=== PATIENT | female | born 1970 | race Caucasian/White ===

== ENCOUNTER 2016-12-18 15:10 | Emergency (ER) | payer OTHER ==
[~2016-12-18] VITALS: Ht 165.1 cm; Wt 122.0 kg
[~2016-12-18 15:10] MED LIST: CYAN100018 PO; FER325 PO; PREN-39 PO
[2016-12-18 15:12] VITALS: Ht 165.1 cm; Wt 122.0 kg
--- NOTE | 2016-12-18 17:27 | ERD ---
ER Documentation Chief Complaint Date/Time DATE: 12/18/16 TIME: 17:25 Chief Complaint vag bleed x 1 month HPI Patient is a 46-year-old female who presents to the ED with vaginal bleeding for over one month. She states that she wears multiple pads a day. She states that she had a D&C 2 years ago however she states that she does have irregular periods and has been bleeding. She complains of mild pelvic pain. She complains of dizziness and fatigue for over 1 month. Denies fever or chills. Denies headache. Also complains of dizziness. Denies abdominal pain, nausea, vomiting, diarrhea or constipation. She states her doctor is Dr. Andujar and she has an appointment on 01/01/17 but would like to have a procedure done earlier. ROS All systems reviewed and are negative except as per history of present illness. Medications Home Meds Active Scripts Ferrous Sulfate (Iron) 325 Mg Capsule.er, 325 MG PO TID for 90 Days, CAP Prov:GALILEA CANALES PA-C 12/18/16 Ferrous Sulfate* (Ferrous Sulfate*) 325 Mg Tabec, 325 MG PO DAILY for 30 Days, TAB Prov:ELENA HARMON NP 09/25/14 Reported Medications Vits W-Ca,Fe,Fa(<1MG) ( Vitamins) 1 Tab Tablet, 1 TAB PO DAILY 04/23/14 Cyanocobalamin (B12 Health Booster) 1,000 Mcg/15 Ml Oral.susp, 1000 MCG PO DAILY 04/23/14 Allergies Allergies: Coded Allergies: No Known Allergy (Unverified , 09/22/14) PMhx/Soc History of Surgery: Yes (C SECTION. CHOLECYSTECTOMY, D AND C) Anesthesia Reaction: No Hx Neurological Disorder: No Hx Respiratory Disorders: No Hx Cardiac Disorders: No Hx Psychiatric Problems: No Hx Miscellaneous Medical Probl: No Hx Alcohol Use: No Hx Substance Use: No Hx Tobacco Use: No Smoking Status: Never smoker Physical Exam Vitals Vital Signs Date Time Temp Pulse Resp B/P Pulse Ox O2 Delivery O2 Flow Rate FiO2 12/18/16 15:12 98.1 88 18 140/82 100 Physical Exam GENERAL: Well-developed, well-nourished obese female. Appears in no acute distress. HEART: Regular rate and rhythm. No murmurs, rubs or gallops. ABDOMEN: No scars, ecchymosis or rashes noted. Soft, nontender, and nondistended. Positive bowel sounds in all four quadrants. No rebound tenderness , no guarding. (-) McBurneys point tenderness. No CVA tenderness. BACK: No midline tenderness. Extremities: Equal pulses bilaterally. No peripheral clubbing, cyanosis or edema. No unilateral leg swelling. NEUROLOGIC: Alert and oriented. Moving all four extremities. 5/5 strength in all extremities. Normal speech. Steady gait. SKIN: Normal color. Warm and dry. No rashes or lesions. Capillary refill < 2 seconds Result Diagram: 12/18/16 1800 Results 24 hrs Laboratory Tests Test 12/18/16 18:00 12/18/16 18:21 White Blood Count 11.210^3/ul Red Blood Count 3.4510^6/ul Hemoglobin 8.7g/dl Hematocrit 28.5% Mean Corpuscular Volume 82.6fl Mean Corpuscular Hemoglobin 25.2pg Mean Corpuscular Hemoglobin Concent 30.5g/dl Red Cell Distribution Width 15.7% Platelet Count 54492^3/UL Mean Platelet Volume 9.7fl Neutrophils % 69.2% Lymphocytes % 24.6% Monocytes % 3.9% Eosinophils % 1.4% Basophils % 0.4% Nucleated Red Blood Cells % 0.0/100WBC Neutrophils # 7.810^3/ul Lymphocytes # 2.810^3/ul Monocytes # 0.410^3/ul Eosinophils # 0.210^3/ul Basophils # 0.010^3/ul Nucleated Red Blood Cells # 0.010^3/ul Bedside Urine pH (LAB) 5.5 Bedside Urine Protein (LAB) Negative Bedside Urine Glucose (UA) Negative Bedside Urine Ketones (LAB) Negative Bedside Urine Blood 3+ Bedside Urine Nitrite (LAB) Negative Bedside Urine Leukocyte Esterase (L Negative Procedures/MDM ER COURSE: I kept the patient and/or family informed of laboratory and diagnostic imaging results throughout the emergency room course. EKG, MONITORS, & DIAGNOSTIC IMAGING: [place] [id number] Radiology Main Line: [phone] DIAGNOSTIC IMAGING REPORT Patient: JOSLYN CRUZ : 1970 Age: 46 Sex: F MR #: [id number] DOS: 12/18/16 1643 Ordering MD: GALILEA CANALES PA-C Location: [facility] Room/Bed: PROCEDURE: US Pelvis CLINICAL INDICATION: VAGINAL BLEEDING X 1 MONTH TECHNIQUE: Multiple sonographic images of the pelvis were obtained utilizing a transabdominal technique. The images were reviewed on a PACS workstation. COMPARISON: None. FINDINGS: The uterus measures 12.2 x 5.1 x 7.4 cm. The endometrial echo complex measures 8 mm in thickness. No discrete lesion is seen. The right ovary measures 2.7 x 2.0 x 2.3 cm. The left ovary measures 2.8 x 2.4 x 2.8 cm. There is normal vascular flow in both ovaries. No significant ovarian lesions are seen. No significant pelvic free fluid is identified. IMPRESSION: Unremarkable transabdominal pelvic ultrasound, as above. RPTAT: EE Physician Nallely Date Time Electronically viewed and signed by Physician Nallely on 12/18/2016 17:51 RA/ CC: GALILEA CANALES PA-C LAB INTERPRETATION: CBC shows hemoglobin 8.7 with a white count of 11.2. Urine dip shows 3+ blood with no nitrites or leukocytes. MEDICAL DECISION MAKING: This is a 46-year-old female who presents with vaginal bleeding greater than 1 month. Vital signs were reviewed. Patient is afebrile. Patient is not hypoxic. Patient is not toxic or ill-appearing. Patient is not tachycardic. Patient has vaginal bleeding of unknown etiology. Her ultrasound is read by radiologist is unremarkable transabdominal pelvic ultrasound. I did speak with Dr. Andujar who stated that patient is stable for outpatient therapy and can be seen at his office tomorrow 12/19/16 after 9 AM. Low suspicion for ovarian torsion, PID, tuboovarian abscess, ectopic , bowel obstruction, pyelonephritis, UTI, appendicitis, cervicitis, septic , molar , HELLP syndrome, preeclampsia, eclampsia, placenta previa, placenta abruptia. Patient is hemodynamically stable. Patient does not need to be admitted at this time for blood transfusion. DISCHARGE: At this time, patient is stable for discharge and outpatient management with no new complaints during the ER course. Patient was sent home with iron and address of Dr. Andujar as well as phone number and to follow-up tomorrow.. Patient will be discharged home with instructions to recheck for new or worsening symptoms such as fever, nausea, weakness, LOC and to follow up with primary care in the next 1-2 days. Patient was advised to return to the ER for any new or worsening symptoms. Plan was discussed and patient and/or family understands and agrees. Home instructions were given. Departure Diagnosis: Primary Impression: Vaginal bleeding Condition: Stable GALILEA CANALES PA-C Dec 18, 2016 17:27
--- NOTE | 2016-12-18 17:51 | RADRPT ---
PROCEDURE: US Pelvis CLINICAL INDICATION: VAGINAL BLEEDING X 1 MONTH TECHNIQUE: Multiple sonographic images of the pelvis were obtained utilizing a transabdominal tech nique. The images were reviewed on a PACS workstation. COMPARISON: None. FINDINGS: The uterus measures 12.2 x 5.1 x 7.4 cm. The endometrial echo complex measures 8 mm in thickness. No discrete lesion is seen. The right ovary measures 2.7 x 2.0 x 2.3 cm. The left ovary measures 2.8 x 2.4 x 2.8 cm. There is no rmal vascular flow in both ovaries. No significant ovarian lesions are seen. No significant pelvic free fluid is identified. IMPRESSION: Unremarkable transabdominal pelvic ultrasound, as above. RPTAT: EE Physician Nallely Date Time Electronically viewed and signed by Physician Nallely on 12/18/2016 17:51 /
[2016-12-18 18:20] LABS: ADD SCAN DIFF NO
[2016-12-18 18:21] LABS: URINE BLOOD (Dip) POC 3+ (NEGATIVE)
[2016-12-18 18:23] LABS: BASOPHILS % 0.4 % (0.0-2.0); EOSINOPHILS # 0.2 10^3/ul (0.0-0.5); EOSINOPHILS % 1.4 % (0.0-7.0); HEMATOCRIT 28.5 % (37.0-47.0); HEMOGLOBIN 8.7 g/dl (12.0-16.0); LYMPHOCYTES # 2.8 10^3/ul (0.8-2.9); LYMPHOCYTES % 24.6 % (15.0-51.0); MEAN CORPUSCULAR HEMOGLOBIN 25.2 pg (29.0-33.0); MEAN CORPUSCULAR HGB CONC 30.5 g/dl (32.0-37.0); MEAN CORPUSCULAR VOLUME 82.6 fl (82.0-101.0); MEAN PLATELET VOLUME 9.7 fl (7.4-10.4); MONOCYTE # 0.4 10^3/ul (0.3-0.9); MONOCYTES % 3.9 % (0.0-11.0); NEUTROPHIL # 7.8 10^3/ul (1.6-7.5); NEUTROPHILS % 69.2 % (39.0-77.0); PLATELET COUNT 374 10^3/UL (140-415); RED BLOOD COUNT 3.45 10^6/ul (4.20-5.40); RED CELL DISTRIBUTION WIDTH 15.7 % (11.5-14.5); WHITE BLOOD COUNT 11.2 10^3/ul (4.8-10.8)
[2016-12-18] MEDS ORDERED: FERR325C PO (18:45)
== END 2016-12-18 19:15 | disposition home or self-care (01) ==
LOC: FTE 15:10
DX: N93.8 Other specified abnormal uterine and vaginal bleeding (principal); R10.2 Pelvic and perineal pain
CPT/HCPCS: 36415; 76856; 81003; 85025

== ENCOUNTER 2017-01-02 07:10 | Day surgery (SDC) | payer OTHER ==
[2017-01-01 11:33] VITALS: BMI 48.4
[~2017-01-02] VITALS: Ht 165.1 cm; Wt 135.0 kg
[2017-01-02] VITALS (15 sets, daily range): BP systolic 125–151; BP diastolic 61–80; PULSE 82–92; RESP 16–18; Ht 165.1 cm; Wt 135.0 kg
[~2017-01-02 07:10] MED LIST changes: +FERR325C PO
[2017-01-02] MEDS ORDERED: OMEP40CA6 PO (07:56)
[2017-01-02] MEDS ORDERED: ASPI-664 PO (07:57)
[2017-01-02] MEDS ORDERED: CHLO25TA13 PO (07:57)
[2017-01-02] MEDS ORDERED: MULTI PO (07:58)
[2017-01-02] MEDS ORDERED: LACTATED RINGER'S 1,000 ML IV SCH (08:30)
[2017-01-02 09:35] LABS: ADD SCAN DIFF NO
[2017-01-02 09:38] LABS: BASOPHILS % 0.3 % (0.0-2.0); EOSINOPHILS # 0.1 10^3/ul (0.0-0.5); EOSINOPHILS % 1.3 % (0.0-7.0); HEMATOCRIT 28.6 % (37.0-47.0); HEMOGLOBIN 8.4 g/dl (12.0-16.0); LYMPHOCYTES # 2.4 10^3/ul (0.8-2.9); LYMPHOCYTES % 23.9 % (15.0-51.0); MEAN CORPUSCULAR HEMOGLOBIN 24.2 pg (29.0-33.0); MEAN CORPUSCULAR HGB CONC 29.4 g/dl (32.0-37.0); MEAN CORPUSCULAR VOLUME 82.4 fl (82.0-101.0); MEAN PLATELET VOLUME 9.5 fl (7.4-10.4); MONOCYTE # 0.4 10^3/ul (0.3-0.9); MONOCYTES % 4.3 % (0.0-11.0); NEUTROPHIL # 6.9 10^3/ul (1.6-7.5); NEUTROPHILS % 69.8 % (39.0-77.0); PLATELET COUNT 375 10^3/UL (140-415); RED BLOOD COUNT 3.47 10^6/ul (4.20-5.40); RED CELL DISTRIBUTION WIDTH 15.6 % (11.5-14.5); WHITE BLOOD COUNT 9.9 10^3/ul (4.8-10.8)
[2017-01-02] MEDS ORDERED: SUCCINYLCHOLINE CHLORIDE 100 MG/5 ML SYG IV ONE (11:17)
[2017-01-02] MEDS ORDERED: FENTAnyl 50 MCG/ML VIAL ONE (11:17)
[2017-01-02] MEDS ORDERED: METOCLOPRAMIDE 10 MG INJ ONE (11:17)
[2017-01-02] MEDS ORDERED: ROCURONIUM 50 MG INJ ONE (11:17)
[2017-01-02] MEDS ORDERED: PROPOFOL 20 ML ONE (11:17)
[2017-01-02] MEDS ORDERED: ONDANSETRON 4 MG INJ ONE (11:17)
[2017-01-02] MEDS ORDERED: LABETALOL HCL 20MG INJ IV PRN (11:30)
[2017-01-02] MEDS ORDERED: ONDANSETRON 4 MG INJ IV PRN (11:30)
[2017-01-02] MEDS ORDERED: FENTAnyl 50 MCG/ML VIAL IV PRN ×2 (11:30)
[2017-01-02] MEDS ORDERED: hydrALAzine 20 MG INJ IV PRN (11:30)
[2017-01-02] MEDS ORDERED: MEPERIDINE 25 MG INJ IV PRN (11:30)
[2017-01-02] MEDS ORDERED: HYDROmorphONE (0.2 MG/ML) 10ML SYG IV PRN ×3 (11:30)
--- NOTE | 2017-01-02 12:26 | PREOPHP ---
DATE OF ADMISSION: 01/02/2017 HISTORY OF PRESENT ILLNESS: A 46-year-old female 3, para 2, AB 1 who was admitted with hist ory of prolonged menses. PAST MEDICAL HISTORY: Unremarkable. PAST SURGICAL HISTORY: section and cholecystectomy. ALLERGIES: NO KNOWN ALLERGIES. FAMILY HISTORY: Breast cancer. PHYSICAL EXAMINATION: VITAL SIGNS: The patient is afebrile. Vital signs stable. HEAD: Within normal limits. NECK: Within normal limits. CHEST: Within normal limits. ABDOMEN: Soft, nontender, nondistended. PELVIC: Uterus is slightly enlarged. EXTREMITIES: Within normal limits. NEUROLOGIC: Within normal limits. IMPRESSION: Abnormal uterine bleeding. PLAN: Dilation and curettage. Risks, benefits, and alternatives of the procedure were explained to the patient. The patient said she understood and gave informed consent for the procedure. Dictated By: ISAAC ADDISON/FELISHA Conf#: [id number] DID#: [id number]
--- NOTE | 2017-01-02 12:28 | OPR ---
DATE OF OPERATION: 01/02/2017 PREOPERATIVE DIAGNOSIS: Abnormal uterine bleeding. POSTOPERATIVE DIAGNOSIS: Abnormal uterine bleeding. OPERATION PERFORMED: Endocervical curettage, dilation and endometrial curettage. SURGEON: Isaac Andujar MD ANESTHESIA: General. ANESTHESIOLOGIST: Gadiel Koehler MD PROCEDURE: The patient was taken to the operating room and placed on the operating table in supine position. After adequate general anesthesia was given, the patient was placed in dorsal lithotomy p osition. The area was then prepared and draped in the usual sterile fashion. Speculum was placed i nside the vagina and tenaculum was used to grasp the anterior lip of the cervix. Using a Kevorkian curette, endocervical curettage was performed and specimen obtained was sent to pathology. Next, us ing cervical dilators, the cervical os was dilated. Using a sharp curette, endometrial curettage wa s performed and specimen obtained was sent to pathology. All the instruments were removed. Adequat e hemostasis was assured. The patient tolerated the procedure well. The patient was awakened from anesthesia and transferred to recovery in stable condition. Estimated blood loss was minimal. Comp lications none. All counts were correct. Dictated By: ISAAC ADDISON/NTS Conf#: [id number] DID#: [id number]
--- NOTE | 2017-01-03 09:04 | RADRPT ---
Vent Rate: 86 bpm RR Interval: 0 msec RI Interval: 136 msec QRS Duration: 92 msec QT Interval: 398 msec QTC Interval: 476 msec P-R-T [place]: 64 - 10 - 23 degrees Normal sinus rhythm Normal ECG Electronically Signed By: Scott Hernandez [id number]
== END 2017-01-02 13:55 | disposition home or self-care (01) ==
LOC: SDS 07:10
PROVIDERS: ATTEND Obstetrics & Gynecology
DX: N93.9 Abnormal uterine and vaginal bleeding, unspecified (principal); I10 Essential (primary) hypertension; E66.01 Morbid (severe) obesity due to excess calories; Z68.42 Body mass index [BMI] 45.0-49.9, adult; D64.9 Anemia, unspecified; E07.9 Disorder of thyroid, unspecified; N87.9 Dysplasia of cervix uteri, unspecified
CPT/HCPCS: 58120; 85025; 86850; 86900; 86901; 88305; 93005; J0330; J2405; J2765; J3010; Z7512; Z7610